=== PATIENT | female | born 1975 | race Caucasian/White ===

== ENCOUNTER → 2016-06-29 | Outpatient (CLI) | payer SELFPAY ==
--- NOTE | 2016-06-30 05:53 | MRI ---
Procedure: MR BRAIN WITHOUT THEN WITH IV CONTRAST Exam Date: 06/29/2016 12:00 AM CDT Ordering Provider: ESTEFANÍA SANCHEZ Clinical Indication: HEADACHE Comparison: None Technique: Multiplanar MRI of the brain was obtained with and without contrast the administration of IV contrast. Findings: No pathologic enhancement. Ventricular size and configuration are normal. There is no midline shift or hydrocephalus. There is normal signal within the cortical golden matter, subcortical white matter, and periventricular white matter. There is normal signal within the deep golden matter nuclei. There is normal signal within the cerebellum. There is normal signal within the brainstem There is no evidence of an acute infarct. There is no parenchymal hemorrhage. The pituitary gland is normal in size. There are no pineal masses. There are normal intracranial vascular flow voids. The foramen magnum is normal. There is normal signal within the paranasal sinuses. The orbits are intact. IMPRESSION: 1. Unremarkable MRI of the brain with and without the administration of IV contrast. Electronically signed by: Ayan Menchaca MD 06/30/2016 5:52 AM CDT
== END | disposition home or self-care (01) ==
LOC: LAB.O 10:55
PROVIDERS: ATTEND Nurse Practitioner Family
DX: R51 Headache (principal); E34.9 Endocrine disorder, unspecified

== ENCOUNTER 2017-04-27 20:15 | Emergency (ER) | payer SELFPAY ==
[2017-04-27 20:45] VITALS: O2SAT 99
--- NOTE | 2017-04-27 21:08 | RAD ---
EXAM DESCRIPTION: Chest,1 View CLINICAL HISTORY: Cough, Congestion COMPARISON: None. FINDINGS: Cardiac silhouette is within normal limits. There is no focal parenchymal or pleural disease. Visualized osseous structures are within normal limits. IMPRESSION: No evidence of acute cardiopulmonary disease. Electronically signed by: Kai Rizvi 04/27/2017 9:07 PM [facility]
--- NOTE | 2017-04-27 21:33 | ED.PDOC ---
History of Present Illness - General Chief Complaint: Respiratory Problem Stated Complaint: Sore Throat, Cough x several days Time Seen by Provider: 04/27/17 21:24 Source: patient Exam Limitations: no limitations - History of Present Illness Comments: [place] 42 y/o female stated that she was treated for upper respiratory tract infection 2 weeks ago got better after a week then started coughing and with sore throat the last 3 days no fever ,chill,nausea /vomiting Timing/Duration: other - 3 days Cough Quality/Degree: dry cough Possible Cause: unknown cause Improving Factors: nothing Worsening Factors: nothing Associated Symptoms: denies symptoms Respiratory Risk Factors: no cause identified Allergies/Adverse Reactions: Allergies NO KNOWN ALLERGY Allergy (Verified 06/04/14 14:08) Home Medications: Ambulatory Orders NK [NK] 04/27/17 Review of Systems - Review of Systems Constitutional: States: no symptoms reported EENTM: States: throat pain Respiratory: States: see HPI, cough Cardiology: States: no symptoms reported Gastrointestinal/Abdominal: States: no symptoms reported Genitourinary: States: no symptoms reported All other Systems: Reviewed and Negative, No Change from Baseline Past Medical History (General) - Patient Medical History Hx Stroke: No Hx of COPD: No Hx Cardiac Disorders: No Hx Congestive Heart Failure: No Hx Diabetes: No Hx Cancer: No Hx Hepatitis C: No Surgical History: other - foot,hysterectomy - Vaccination History Hx Tetanus, Diphtheria Vaccination: No Hx Influenza Vaccination: No Hx Pneumococcal Vaccination: No - Social History Hx Tobacco Use: No Hx Chewing Tobacco Use: No Hx Alcohol Use: No Hx Substance Use: No Hx Substance Use Treatment: No Hx Depression: No Feels Threatened In Home Enviroment: No Feels Threatened In a Relationship: No Hx Physical Abuse: No Hx Emotional Abuse: No Hx Suspected Abuse: No - Female History Patient is a Female of Child Bearing Age (10 -59 yrs old): Yes Patient : No Family Medical History - Family History Grandparents Living Status: Hx Family Congestive Heart Failure: Yes - grandfather Hx Family Cancer: Yes - lung Physical Exam - Physical Exam General Appearance: Alert, Comfortable Eye Exam: bilateral normal ENT Exam: nasal congestion, pharyngeal erythema Neck: non-tender, supple Respiratory: lungs clear, normal breath sounds, no respiratory distress Cardiovascular/Chest: normal peripheral pulses, regular rate, rhythm, no murmur Gastrointestinal/Abdominal: non tender, soft, no organomegaly Extremity: non-tender, no calf tenderness Neurologic: no motor/sensory deficits, alert, oriented x 3 Skin Exam: normal color, warm/dry Progress - Progress Progress: 04/27/17 21:38 Last Vital Signs Temp 99 F 04/27/17 20:40 Pulse 97 H 04/27/17 20:40 Resp 22 04/27/17 20:40 BP 124/77 04/27/17 20:40 Pulse Ox 99 04/27/17 20:40 - Results/Orders Results/Orders: FLU/STREP negative - EKG/XRAY/CT XRAY: chest - no acute abnormalities Departure - Departure Clinical Impression: Viral upper respiratory tract infection with cough Time of Disposition: 21:40 Disposition: Discharge to Home or Self Care Condition: Fair Departure Forms: ED Discharge - Pt. Copy, Patient Portal Self Enrollment Instructions: DI for Viral Upper Respiratory Infection -- Adult Referrals: ESTEFANÍA SANCHEZ IV, INFORMATICS PHARMACIST [Primary Care Provider] - 1-2 Weeks Home Medications: Ambulatory Orders NK [NK] 04/27/17 Additional Instructions: May take over the counter cough cold medications;Use nasal saline spray as needed for nasal congestion
[2017-04-27 22:29] VITALS: BP 106/75; TEMP 99.2
== END 2017-04-27 22:00 | disposition home or self-care (01) ==
LOC: ER 20:15
DX: J06.9 Acute upper respiratory infection, unspecified (principal)

== ENCOUNTER → 2018-05-10 | Outpatient (CLI) | payer SELFPAY ==
--- NOTE | 2018-05-11 12:01 | CT ---
EXAM DESCRIPTION: CT ABDOMEN AND PELVIS WITHOUT AND WITH CONTRAST CLINICAL HISTORY: LOWER ABDOMINAL PAIN COMPARISON: None Available. TECHNIQUE: CT of the abdomen and pelvis are performed prior to and during IV bolus administration of 100 mL of Isovue 300. Oral contrast media is administered as well. FINDINGS: CT abdomen The lung bases are clear of infiltrate except for minimal scarring or discoid atelectasis in the right middle lobe adjacent to the heart. Heart size is normal. Liver is normal in size and parenchymal appearance on precontrast images no renal calculi or calcified gallstones. Postcontrast images show few tiny cysts in the liver. No calcified stones in the gallbladder. Small fatty lesion in the head of the pancreas consistent with lipoma 6 mm. Spleen, pancreas, and kidneys are otherwise unremarkable. Delayed images show normal contrast in kidneys. No filling defects in the renal pelves or proximal ureters. Ventral bulge between diastatic rectus abdominous muscles is seen at the umbilical level containing fat and a portion of the transverse colon. No incarceration or evidence of obstruction. There is no lymphadenopathy, inflammation, or free fluid observed. CT pelvis No inflammation is seen around the cecum or terminal ileum or sigmoid colon. Appendix is normal in appearance. No stones are seen in the distal ureters or bladder. Delayed postcontrast images show positive contrast in the distal ureters and bladder. No filling defect in the bladder. Normal pelvic small bowel loops. No fracture or lytic lesion of the osseous structures. Postcontrast images show normal enhancement of the pelvic vessels. Uterus and ovaries are not seen, evidently surgically absent. IMPRESSION: No acute upper abdominal process. No acute process in the pelvis. This exam was performed according to our departmental dose-optimization program, which includes automated exposure control, adjustment of the mA and/or kV according to patient size and/or use of iterative reconstruction technique. Electronically signed by: Favian Clifton MD 05/11/2018 11:58 AM [employer]NR[employer]MENT TE[employer]ER
== END ==
LOC: CT 16:33
PROVIDERS: ATTEND Nurse Practitioner Family
DX: R10.30 Lower abdominal pain, unspecified (principal)

== ENCOUNTER → 2019-09-25 | Outpatient (CLI) | payer OTHER | LOC: YCFC.O 10:00 | PROVIDERS: ATTEND Family Medicine | DX: Z03.818 Encounter for observation for suspected exposure to other biological agents ruled out (principal) ==

== ENCOUNTER 2019-12-11 22:00 | Emergency (ER) | payer SELFPAY ==
[2019-12-11] MEDS ORDERED: KETOROLAC TROMETHAMINE INJ 30 MG/ML VIAL IM ONE (22:12)
--- NOTE | 2019-12-11 22:14 | ED.PDOC ---
History of Present Illness - General Chief Complaint: Neck Injury/Pain Stated Complaint: neck pain Time Seen by Provider: 12/11/19 22:01 - History of Present Illness Initial Comments: 44 yo otherwise healthy female has been having 6 days of left sided neck pain. comes in waves. feels like a sharp spasm. denies any recent illness, sore throat. no difficulty swallowing. no known trauma. Pain slightly worse with movement. no midline tenderness. no fever or ear ache. denies constipation, dry skin, weight loss/weight gain. no issues with thyroid. Has tried hot and cold ice packs without benefit. her mom gave her a tylenol with codeine but that did not help either. came in because couldn't sleep because of the pain. Denies any cat scratch or garden work/thorn scratches. Allergies/Adverse Reactions: Allergies NO KNOWN ALLERGY Allergy (Verified 06/04/14 14:08) Home Medications: Ambulatory Orders Cyclobenzaprine HCl [Cyclobenzaprine Hydrochlo] 10 mg PO QPM PRN #10 tab 12/11/19 Prednisone 40 mg PO DAILY 5 Days #10 tab 12/11/19 Review of Systems - Review of Systems Constitutional: Denies: chills, fever EENTM: Denies: eye pain, blurred vision, ear pain, nose pain, nose congestion, throat pain, throat swelling, mouth pain, mouth swelling Respiratory: Denies: cough, short of breath Cardiology: Denies: chest pain, palpitations Gastrointestinal/Abdominal: Denies: abdominal pain, constipation, diarrhea, nausea, vomiting Genitourinary: Denies: hematuria Musculoskeletal: States: muscle pain, neck pain. Denies: back pain, joint pain, joint swelling, muscle stiffness Skin: Denies: rash Neurological: States: headache. Denies: numbness, paresthesia, seizure, tin gling, tremors, weakness Endocrine: Denies: increased hunger, increased thirst, increased urine, unexplained weight gain, unexplained weight loss Hematologic/Lymphatic: Denies: blood clots, easy bleeding, easy bruising Past Medical History (General) - Patient Medical History Hx Stroke: No Hx of COPD: No Hx Cardiac Disorders: No Hx Congestive Heart Failure: No Hx Diabetes: No Hx Cancer: No Hx Hepatitis C: No - Vaccination History Hx Tetanus, Diphtheria Vaccination: No Hx Influenza Vaccination: No Hx Pneumococcal Vaccination: No - Social History Hx Tobacco Use: No Hx Chewing Tobacco Use: No Hx Alcohol Use: No Hx Substance Use: No Hx Substance Use Treatment: No Hx Depression: No Hx Physical Abuse: No Hx Emotional Abuse: No Hx Suspected Abuse: No - Female History Patient : No Family Medical History - Family History Grandparents Living Status: Hx Family Congestive Heart Failure: Yes - grandfather Hx Family Cancer: Yes - lung Physical Exam - Physical Exam General Appearance: Alert, Comfortable, No apparent distress, Well Developed, Well Groomed, Well Hydrated, Well Nourished Eye Exam: right other, bilateral normal Ears, Nose, Throat: hearing grossly normal, normal ENT inspection, normal pharynx Neck: full range of motion, supple, normal inspection, other - thyroid not enlarged, no nodules. trapezius tenderness, SCM tenderness, tightness. no carotid bruit Respiratory: chest non-tender, lungs clear, normal breath sounds, no respiratory distress, no accessory muscle use Cardiovascular/Chest: normal peripheral pulses, regular rate, rhythm, no edema, no gallop, no JVD, no murmur Peripheral Pulses: radial,right: 2+, radial,left: 2+, posterior tibialis,right: 2+, posterior tibialis,left: 2+ Gastrointestinal/Abdominal: normal bowel sounds, non tender, soft, no organomegaly Rectal Exam: deferred Back Exam: normal inspection, no CVA tenderness, no vertebral tenderness, other - no midline neck tenderness. Extremity: normal range of motion, non-tender, normal inspection, other - 5/5 muscle strength of UE. Neurologic: top spotter II-XII nml as tested, no motor/sensory deficits, alert, normal mood/affect, oriented x 3 DTR: 2+: Triceps, left, Triceps, right, Brachioradialis, left, Brachioradialis, right Skin Exam: normal color, warm/dry Lymphatic: no adenopathy Progress - Progress Progress: 12/11/19 22:16 partial ddx considered: Lymphadenitis from URI/ear infection/cat scratch, thyroid nodule, muscle spasm, lymphoma. Due to presentation, no systemic symptoms, intermittent pain and muscle tenderness and tightness on exam consistent with muscle pain. Patient denies . will give a dose of toradol and re-evaluate. patient still has pain. will give some magnesium. pain slightly improved. The data reviewed when caring for this patient included: nurse notes, prior records, etc. The history and assessments from nurses notes were reviewed and considered, and the patient's home medication list was also reviewed and considered. All questions were answered, and they express understanding of my assessment and the plan. They have been instructed to return if their symptoms worsen, and have been asked to follow up with their primary care physician to recheck today's presenting complaint. return precautions given. I have reviewed medication, benefits, alternatives and side effects. Patient decided to proceed with medication.She understands not to drive or operate heavy machinery while on muscle relaxers. VSS, patient discharged home in stable condition. Jenn Tillman DO #[id number] Departure - Departure Clinical Impression: Muscle spasm Time of Disposition: 22:20 Disposition: Discharge to Home or Self Care Condition: Fair Departure Forms: ED Discharge - Pt. Copy, Patient Portal Self Enrollment Instructions: DI for Neck Pain, Muscle Strain (DC), Neck Pain, Generalized Neck Pain (DC) Activity: increase activity as tolerated Referrals: Kelsi Sánchez MD [Primary Care Provider] - 1-5 Days Prescriptions: Cyclobenzaprine HCl [Cyclobenzaprine Hydrochlo] 10 mg PO QPM PRN #10 tab PRN Reason: Muscle Spasms Prednisone 40 mg PO DAILY 5 Days #10 tab Home Medications: Ambulatory Orders Cyclobenzaprine HCl [Cyclobenzaprine Hydrochlo] 10 mg PO QPM PRN #10 tab 12/11/19 Prednisone 40 mg PO DAILY 5 Days #10 tab 12/11/19
[2019-12-11 22:16] VITALS: O2SAT 100
[2019-12-11] MEDS ORDERED: CYCLOBENZAPRINE TAB (ER DISP) 10 MG TAB PO ONE (22:42)
[2019-12-11] MEDS ORDERED: MAGNESIUM OXIDE 400 MG TAB ONE (22:49)
[2019-12-11 22:55] VITALS: BP 116/82; TEMP 96.8
[2019-12-12] MEDS ORDERED: MAGNESIUM OXIDE 400 MG TAB PO ONE (22:39)
== END 2019-12-11 22:55 | disposition home or self-care (01) ==
LOC: ER 22:00
DX: M62.838 Other muscle spasm (principal)

== ENCOUNTER → 2020-02-27 | Outpatient (CLI) | payer OTHER | LOC: YCFC.O 14:33 | PROVIDERS: ATTEND Nurse Practitioner Family | DX: Z20.828 Contact with and (suspected) exposure to other viral communicable diseases (principal) ==